=== PATIENT | male | born 1935 | race Caucasian/White ===

== ENCOUNTER 2017-01-24 07:02 | Inpatient (IN) | payer OTHER, MEDICARE ==
[~2017-01-24] VITALS: Ht 162.6 cm; Wt 61.8 kg
[~2017-01-24 07:02] MED LIST: AMLO10 PO; ATEN50TA PO; ATOR20TA15 PO; ECASA81 PO; ENAL20TA81 PO; FEXO180T PO; MOME17I EACH NARE; OMEP20TA93 PO; VITA2000 PO
[2017-01-24] MEDS ORDERED: VANCOMYCIN 1000 MG/NS 250 ML (for <70 kg) IV SCH ×2 (07:30)
[2017-01-24] MEDS ORDERED: LACTATED RINGER'S 1000 ML IV PRN (07:30)
[2017-01-24] MEDS ORDERED: INSULIN HUMAN REGULAR 1,000 UNITS/10 ML VIAL SQ PRN (07:30)
[2017-01-24] MEDS ORDERED: POVIDONE IODINE 5% (ANTISEPSIS KIT) 4 APPLICATIONS EACH NARE PRN (07:30)
[2017-01-24] MEDS ORDERED: METOPROLOL TARTRATE 25 MG TAB PO PRN (07:30)
[2017-01-24] MEDS ORDERED: SODIUM CHLORID 0.9% 500 ML IV PRN (07:30)
[2017-01-24] MEDS ORDERED: POVIDONE IODINE 7.5% SCRUB 118 ML BOTTLE TOPICAL SCH (07:30)
[2017-01-24] MEDS ORDERED: CHLORHEXIDINE GLUCONATE 2 % 1 PACK (2 CLOTHS) TOPICAL PRN (07:30)
[2017-01-24] MEDS ORDERED: BUPIVACAINE/EPINEPHRINE 0.25% PF 30 ML VIAL ONE (10:12)
[2017-01-24] MEDS ORDERED: GENTAMICIN SULFATE 80 MG/2 ML VIAL ONE (10:12)
[2017-01-24] MEDS: ceFAZolin 2 GM PREMIX 50 ML IV SCH ×2 (12:04→12:55)
[2017-01-24] MEDS ORDERED: LACTATED RINGER'S 1000 ML INJ 1,000 ML IV SCH (13:43)
[2017-01-24] MEDS ORDERED: ACETAMINOPHEN/HYDROcodone 325 MG/7.5 MG TAB PO PRN ×2 (13:45)
[2017-01-24] MEDS ORDERED: ONDANSETRON HCL 4 MG/2 ML VIAL IV PUSH PRN (13:45)
[2017-01-24] MEDS ORDERED: Post-op Orders (for Pharmacy) XX ONE (13:45)
[2017-01-24] MEDS ORDERED: BISACODYL 10 MG SUPP RECTAL PRN (13:45)
[2017-01-24] MEDS ORDERED: MORPHINE SULFATE 4 MG/ML INJ IV PUSH PRN (13:45)
--- NOTE | 2017-01-24 13:51 | PD.OP ---
cc: Juan Sung MD Operative Report Date of Surgery: Jan 24, 2017 Preoperative Diagnosis: Osteophyte disc complex cervical spine. Cervical spinal stenosis. Cervical radiculopathy Postoperative Diagnosis: Same Procedure: Posterior cervical fusion C4 5, C5 6, C6 7. Posterior spinal segmental instrumentation, C4 5, C5 6, C6 7. Placement of intravenous facet cages bilateral C4 5, C5 6 and C6 7 Anesthesia: Gen. Surgeon: Juan Sung Director Economic(s): ELIZABETH Gill Operation and Findings: EBL: 50 cc INDICATIONS: This patient is an 81-year-old male with significant neural compressive disease at C4 to C7 with cervical stenosis, cervical radiculopathy and anticipating anterior cervical decompression and fusion at the above levels. He now presents for staged posterior cervical fusion across the same levels NOTE: Sandy Gill PA-C was present for the entire surgical procedure as my medical staff assistant. In my medical opinion her skill and care was necessary for proper management of this patient PROCEDURE: The patient was brought the operating room and anesthetized in the supine position. The patient was positioned prone on a Toni table. The arms were placed out along the side and taping was utilized to ensure adequate visualization. AP and lateral radiographic images were used identifying the proper level and allowing excellent exposure for purpose of the cervical fusion. A timeout was done and antibiotics were given within a routine time window. A small incision was made over the left iliac crest bone graft. A series of cores of bone graft were harvested with a special percutaneous device. The bone graft was taken to the back table to be mixed with stem cell bone graft for the later part of the case Using AP and lateral radiographs, skin markings were made. On the right side and 18-gauge spinal needle was placed down to the proper level. The left side a separate incision was made and we used the [employer] system. Exposure was afforded down to the proper level. Under visualization, a chisel was placed down to the C C6 7 level. This was confirmed under radiographs to be in proper position. Exposure was satisfactory. This is placed down into the facet joint at that level. A decorticating device was utilized decorticating the bone of the facet above and below. A retractor was placed down over the access chisel allowing exposure to the joint and exposure to the articular cartilage. A drilling system was utilized removing cartilage and bone this region followed by a rasp. On the back table demineralized bone matrix was mixed with Nucel stem cells and a autogenous bone graft. A combination of both these were then paced placed into proper cages. The cages were impacted into the proper position and checked again under AP and lateral fluoroscopic images. A transfixation screw was placed into the cage having excellent fixation into the facet joint of the level above. The back side of the cage was filled with additional bone graft which was tamped into position. The retractor was removed. On the right side a separate incision was made. Using the likewise sequence of access to the same level, an incision was made allowing visualization for placement of an access chisel which was placed into the joint followed by decortication with excellent visualization. A final retractor was positioned holding this while we were able to drill and use the rasp. The joint was prepared and we created a space for the cage. The cage was filled with bone graft and impacted in proper position. A transfixation screw was fixated at that time and alignment was satisfactory. Additional bone graft placed along the posterior aspect of the cage and the facet joint and was tamped into position.. At the [] level, this was repeated in the likewise fashion. A decorticating device was utilized decorticating the bone of the facet above and below. A retractor was placed down over the access chisel allowing exposure to the joint and exposure to the articular cartilage. A drilling system was utilized removing cartilage and bone this region followed by a rasp. On the back table demineralized bone matrix was mixed with Nucel stem cells and a autogenous bone graft. A combination of both these were then paced placed into proper cages. The cages were impacted into the proper position and checked again under AP and lateral fluoroscopic images. A transfixation screw was placed into the cage having excellent fixation into the facet joint of the level above. The back side of the cage was filled with additional bone graft which was tamped into position. The retractor was removed. On the right side this was repeated in the likewise fashion. Using the likewise sequence of access to the same level. An access chisel was placed into the joint followed by decortication with excellent visualization. A final retractor was positioned holding this while we were able to drill and use the rasp. The joint was prepared and we created a space for the cage. The cage was filled with bone graft and impacted in proper position. A transfixation screw was fixated at that time and alignment was satisfactory. Additional bone graft placed along the posterior aspect of the cage and the facet joint and was tamped into position. At the C4 5 level, this was repeated in the likewise fashion. A decorticating device was utilized decorticating the bone of the facet above and below. A retractor was placed down over the access chisel allowing exposure to the joint and exposure to the articular cartilage. A drilling system was utilized removing cartilage and bone this region followed by a rasp. On the back table demineralized bone matrix was mixed with Nucel stem cells and a autogenous bone graft. A combination of both these were then paced placed into proper cages. The cages were impacted into the proper position and checked again under AP and lateral fluoroscopic images. A transfixation screw was placed into the cage having excellent fixation into the facet joint of the level above. The back side of the cage was filled with additional bone graft which was tamped into position. The retractor was removed. On the right side this was repeated in the likewise fashion. Using the likewise sequence of access to the same level. An access chisel was placed into the joint followed by decortication with excellent visualization. A final retractor was positioned holding this while we were able to drill and use the rasp. The joint was prepared and we created a space for the cage. The cage was filled with bone graft and impacted in proper position. A transfixation screw was fixated at that time and alignment was satisfactory. Additional bone graft placed along the posterior aspect of the cage and the facet joint and was tamped into position. Intraoperative x-rays in AP and lateral plane showed excellent positioning and stabilization . The wound was irrigated copiously. Hemostasis was controlled. The fascia was closed with interrupted Vicryl suture skin and subcutaneous tissue with 3-0 Vicryl suture followed by Dermabond. The sponge count needle counts and sponge counts were all correct. The patient tolerated the procedure well as taken to the recovery room in satisfactory condition. FINDINGS: Significant osteophyte disc complexes at each level. Cage position and he stop appeared be very satisfactory. No complication was appreciated. Juan Sung MD Jan 24, 2017 13:51
[2017-01-24] MEDS ORDERED: HYDR-3580 PO (13:54)
[2017-01-24] MEDS ORDERED: DO NOT ADM ANY ANTICOAGULANT DRUGS PRN (14:05)
[2017-01-24] MEDS ORDERED: MIDAZOLAM HCL 2 MG/2 ML VIAL ONE (14:10)
[2017-01-24] MEDS ORDERED: *morphine SULFATE 8 MG/ML PERIprocedure ONLY ONE (14:16)
--- NOTE | 2017-01-24 14:28 | RADRPT ---
EXAM DATE/TIME: 01/24/2017 13:33 [facility] COMPARISON: No previous studies available for comparison. INDICATIONS : C4-C7 Fusion MEDICAL HISTORY : None. SURGICAL HISTORY : None. ENCOUNTER: Initial ACUITY: 1 day PAIN SCORE: Non-responsive. LOCATION: Bilateral C-spine FINDINGS: 2 magnified C-arm spot views are centered over the cervical spine. Interfacet devices are seen involv ing C4-C5, C5-C6, and C6-C7. Alignment is relatively well-preserved. Prevertebral soft tissues are ob scured by an endotracheal tube and esophageal temperature curve. CONCLUSION: Limited images as detailed above. Rupesh Cohen Jr., MD on January 24, 2017 at 14:24 Board Certified Radiologist. This report was verified electronically.
[2017-01-24 16:00] VITALS: BP 144/78; PULSE 83; RESP 17; TEMP 95.3; O2SAT 91
[2017-01-24 20:00] VITALS: BP 147/76; PULSE 84; RESP 20; TEMP 98.6; O2SAT 96
[2017-01-24] MEDS: ENALAPRIL MALEATE 10 MG TAB PO SCH (20:28)
[2017-01-24] MEDS ORDERED: ATENOLOL 50 MG TAB PO SCH (21:00)
[2017-01-24] MEDS ORDERED: ATORVASTATIN 20 MG TAB PO SCH (21:00)
[2017-01-25] VITALS: BP 128/66; PULSE 83; RESP 22; TEMP 96; O2SAT 95
[2017-01-25 04:00] VITALS: BP 114/65; PULSE 62; RESP 20; TEMP 97.6; O2SAT 95
[2017-01-25 07:29] VITALS: O2SAT 95
[2017-01-25 08:00] VITALS: BP 142/60; PULSE 66; RESP 17; TEMP 97.5; O2SAT 94
[2017-01-25] MEDS ORDERED: DOCUSATE SODIUM 100 MG CAP PO SCH (09:00)
[2017-01-25] MEDS ORDERED: LORATADINE 10 MG TAB PO SCH (09:00)
[2017-01-25] MEDS ORDERED: PANTOPRAZOLE SOD 20 MG DELAYED RELEASE TAB PO SCH (09:00)
[2017-01-25] MEDS ORDERED: MULTIVITAMINS/MINERALS THERAPEUTIC TAB PO SCH (09:00)
[2017-01-25] MEDS: ENALAPRIL MALEATE 10 MG TAB PO SCH (09:46)
[2017-01-25 12:00] VITALS: BP 149/72; PULSE 68; RESP 17; TEMP 97.2; O2SAT 91
--- NOTE | 2017-01-25 13:14 | HHI.DCPOC ---
Discharge Care Plan Diagnosis: (1) Cervical spinal stenosis Your Health Problems Are: Incision/Drains Swelling Goals to Promote Your Health * To prevent worsening of your condition and complications * To maintain your health at the optimal level Directions to Meet Your Goals Take your medications as prescribed Follow your dietary instruction Follow activity as directed Keep your appointments as scheduled Take your immunizations and boosters as scheduled If your symptoms worsen call your PCP, if no PCP go to Urgent Care Center or Emergency Room Smoking is Dangerous to Your Health. Avoid second hand smoke Call the 24-hour hour crisis hotline for domestic abuse at Adriana Barrios Jan 25, 2017 13:14
--- NOTE | 2017-01-25 13:15 | HHI.DS ---
Discharge Summary Admission Date Jan 24, 2017 at 07:02 Discharge Date: Jan 25, 2017 Admitting Diagnosis see below Diagnosis: (1) Cervical spinal stenosis Diagnosis: Principal ICD Codes: M48.02 - Spinal stenosis, cervical region Procedures Posterior cervical fusion C4-C7, DTRAX instrumentation, bone graft Brief History This is a 81 year old male patient Hospital Course ..pod#1.. OTC tylenol. Occasional ibuprofen. Educatd to avoid large doses of NSAIDS. [place] 7.5 written though pt states he doesnt need them. Discharge Disposition: Discharge Home Discharge Instructions Diet Instructions: As Tolerated, No Restrictions, Soft Diet, High Fiber Diet Additional Diet Instructions: Soft diet x 48 hours only Activities You Can Perform: See Additionl Instruction Additional Activity Instruc.: Cervical collar full-time New Medications: Hydrocodone/Acetaminophen (Hydrocodone-Acetamin 7.5-325) 7.5 Mg-325 Mg Tablet 1 TAB PO Q4H PRN for PAIN, #50 TAB Continued Medications: Amlodipine (Norvasc) 10 Mg Tab 10 MG PO HS for Blood Pressure Management, #30 TAB [address] (Aspirin DR) 81 Mg Tabdr 81 MG PO DAILY, TAB 0 Refills Atenolol (Atenolol) 50 Mg Tab 50 MG PO HS for Blood Pressure Management, #30 TAB 0 Refills Atorvastatin (Atorvastatin) 20 Mg Tab 20 MG PO HS for Cholesterol Management, #30 TAB 0 Refills Cholecalciferol (Vitamin D3) 2,000 Unit Cap 2000 UNITS PO DAILY for Nutritional Supplement, #1 BOTTLE 0 Refills Enalapril (Vasotec) 20 Mg Tab 20 MG PO BID, #30 TAB 0 Refills Fexofenadine (Fexofenadine) 180 Mg Tab 180 MG PO DAILY for Allergy Management, #30 TAB 0 Refills Mometasone Nasal [place] (Nasonex Nasal [place]) 50 Mcg/Act Naspr 2 SPRAY EACH NARE DAILY for Allergy Management, #1 BOTTLE 0 Refills Omeprazole (Omeprazole) 20 Mg Tab 20 MG PO DAILY, #30 TAB 0 Refills Adriana Barrios Jan 25, 2017 13:15
--- NOTE | 2017-01-25 13:19 | PD.ORT.PN ---
Subjective Subjective Remarks Doing well. He denies any new arm pain. Mild throat soreness but no difficulty swallowing. His pain is well controlled and he has yet to take any narcotics. He is ready for discharge home. He denies any CP, abd pain or SOB. Objective Vitals Vital Signs Date Time Temp Pulse Resp B/P (MAP) Pulse Ox O2 Delivery O2 Flow Rate FiO2 01/25/17 12:00 97.2 68 17 149/72 (97) 91 01/25/17 08:00 97.5 66 17 142/60 (87) 94 01/25/17 07:29 95 21 01/25/17 04:00 97.6 62 20 114/65 (81) 95 01/25/17 00:00 96.0 83 22 128/66 (86) 95 01/24/17 20:00 98.6 84 20 147/76 (99) 96 01/24/17 17:21 Nasal Cannula 2.00 01/24/17 16:00 95.3 83 17 144/78 (100) 91 01/24/17 14:57 86 17 153/81 (105) 97 Nasal Cannula 2 01/24/17 14:45 91 17 173/87 (115) 94 Nasal Cannula 2 01/24/17 14:30 90 17 176/92 (120) 95 Nasal Cannula 2 01/24/17 14:15 85 17 163/96 (118) 90 Nasal Cannula 2 01/24/17 14:04 98.0 83 17 172/86 (114) 97 Nasal Cannula 2 I/O 01/24/17 01/24/17 01/24/17 01/25/17 01/25/17 01/25/17 07:00 15:00 23:00 07:00 15:00 23:00 Intake Total 1800 ml 100 ml 820 ml Output Total 25 ml 800 ml Balance 1775 ml 100 ml 20 ml Intake Oral 720 ml IV Total 100 ml 100 ml Other 1800 ml Output Urine Total 800 ml Estimated Blood Loss 25 ml # Voids 2 # Bowel Movements 1 Procedures Posterior cervical fusion C4-C7, DTRAX instrumentation, bone graft Objective Remarks Sitting up in chair NAD VSS C/S Posterior dressings c/d/i, mild spasms traps, no erythema, no drainage, +motor biceps, brachiorad bilaterally, +sens +nvi bilaterally, good automatic maintainer both hands Assessment & Plan Ortho Post Op Day #: 1 Problem List: (1) Cervical spinal stenosis ICD Codes: M48.02 - Spinal stenosis, cervical region Assessment and Plan pod#1 s/p Posterior cervical fusion C4-7 Ortho stable. Ok to d/c home today. Dry dressing changes daily beginning tomorrow if drainage. Cervical collar turkish rubber but ok to remove for hygiene. Soft diet for 24-38 hours only as he has sore throat. [place] 7.5mg written. He states he normally take ibuprofen but I educated him against NSAIDs as they can increase risk for nonunion. F/U in 2 weeks as scheduled. No C needed. Adriana Barrios Jan 25, 2017 13:19
== END 2017-01-25 17:27 | disposition home or self-care (01) | DRG 473 ==
LOC: HSDI 07:02 → N06A 15:07
PROVIDERS: ADMIT Orthopaedic Surgery Orthopaedic Surgery of the Spine; ATTEND Orthopaedic Surgery Orthopaedic Surgery of the Spine
PROC: 0QB30ZZ Excision of Left Pelvic Bone, Open Approach (ICD-10-PCS; 2017-01-24)
PROC: 0RG20AJ Fusion of 2 or more Cervical Vertebral Joints with Interbody Fusion Device, Posterior Approach, Anterior Column, Open Approach (ICD-10-PCS; principal; 2017-01-24 10:00)
DX: M50.121 Cervical disc disorder at C4-C5 level with radiculopathy (principal); G62.9 Polyneuropathy, unspecified; J44.9 Chronic obstructive pulmonary disease, unspecified; I10 Essential (primary) hypertension; M48.02 Spinal stenosis, cervical region; J02.9 Acute pharyngitis, unspecified; M25.78 Osteophyte, vertebrae; E78.5 Hyperlipidemia, unspecified; K21.9 Gastro-esophageal reflux disease without esophagitis; N40.0 Benign prostatic hyperplasia without lower urinary tract symptoms; Z87.891 Personal history of nicotine dependence
CPT/HCPCS: 72040; 76000; 86850; 86900; 86901; 94150; J0690; J1580; J2250; J2270; J3010; J3370; J7050; J7120

== ENCOUNTER 2017-02-16 05:11 | Observation (INO) | payer MEDICARE, OTHER ==
[~2017-02-16] VITALS: Ht 162.6 cm; Wt 66.3 kg
[~2017-02-16 05:11] MED LIST changes: +HYDR-3580 PO
[2017-02-16] MEDS ORDERED: POVIDONE IODINE 5% (ANTISEPSIS KIT) 4 APPLICATIONS EACH NARE PRN (06:00)
[2017-02-16] MEDS ORDERED: INSULIN HUMAN REGULAR 1,000 UNITS/10 ML VIAL SQ PRN (06:00)
[2017-02-16] MEDS ORDERED: METOPROLOL TARTRATE 25 MG TAB PO PRN (06:00)
[2017-02-16] MEDS ORDERED: VANCOMYCIN 1000 MG/NS 250 ML (for <70 kg) IV SCH ×2 (06:00)
[2017-02-16] MEDS ORDERED: SODIUM CHLORID 0.9% 500 ML IV PRN (06:00)
[2017-02-16] MEDS ORDERED: LACTATED RINGER'S 1000 ML IV PRN (06:00)
[2017-02-16] MEDS ORDERED: CHLORHEXIDINE GLUCONATE 4% SOLN 120 ML BTL TOPICAL SCH (06:00)
[2017-02-16] MEDS ORDERED: CHLORHEXIDINE GLUCONATE 2 % 1 PACK (2 CLOTHS) TOPICAL PRN (06:00)
[2017-02-16] MEDS ORDERED: GENTAMICIN SULFATE 80 MG/2 ML VIAL ONE ×2 (07:06→08:51)
[2017-02-16] MEDS ORDERED: BUPIVACAINE/EPINEPHRINE 0.25% PF 30 ML VIAL ONE ×2 (07:06→08:52)
[2017-02-16] MEDS ORDERED: SAWCAP2 PO (07:30)
[2017-02-16] MEDS ORDERED: GELATIN 12 MM/7 MM FOAM ONE (07:47)
[2017-02-16] MEDS: ceFAZolin 2 GM PREMIX 50 ML IV SCH ×2 (07:53→10:34)
[2017-02-16] MEDS ORDERED: ACETAMINOPHEN 1000 MG/100 ML 100 ML IV ONE (08:41)
[2017-02-16] MEDS ORDERED: PROPOFOL 500 MG/50 ML INJ 100 ML ONE ×2 (08:42→12:41)
[2017-02-16] MEDS ORDERED: MIDAZOLAM HCL 2 MG/2 ML VIAL ONE (08:42)
[2017-02-16] MEDS ORDERED: FAMOTIDINE 20 MG/2 ML VIAL ONE (09:50)
[2017-02-16] MEDS ORDERED: HYDR-3288 PO (13:38)
[2017-02-16] MEDS ORDERED: Post-op Orders (for Pharmacy) XX ONE (13:45)
[2017-02-16] MEDS ORDERED: MORPHINE SULFATE 4 MG/ML INJ IV PUSH PRN (13:45)
[2017-02-16] MEDS ORDERED: ACETAMINOPHEN/HYDROcodone 325 MG/7.5 MG TAB PO PRN ×2 (13:45)
[2017-02-16] MEDS ORDERED: BISACODYL 10 MG SUPP RECTAL PRN (13:45)
[2017-02-16] MEDS ORDERED: ONDANSETRON HCL 4 MG/2 ML VIAL IV PUSH PRN (13:45)
[2017-02-16] MEDS ORDERED: ceFAZolin INJ 1,000 MG VIAL IV ONE (14:27)
--- NOTE | 2017-02-16 15:07 | PD.OP ---
cc: Kyle Sung MD; Juan Sung MD Operative Report Date of Surgery: Feb 16, 2017 Preoperative Diagnosis: Osteophyte disc complex C4 5, C5 6, C6 7. Cervical spinal stenosis C4 to C7. Herniated nucleus pulposus C4 5 and C5 6. Bilateral cervical radiculopathy Postoperative Diagnosis: Same Procedure: Anterocervical discectomy decompression and bilateral foraminotomies, C45. Anterocervical discectomy decompression and bilateral foraminotomy, C5 6. Anterocervical discectomy decompression and bilateral foraminotomies, C6 7. Right anterior iliac crest bone graft Anesthesia: Gen. Surgeon: Juan Sung Product Support Rep(s): ELIZABETH Gill Operation and Findings: EBL: 150 cc INDICATIONS: This patient is an 81-year-old male with significant spinal stenosis in the mid to low cervical spine and evidence progressive weakness in both arms. He developed a gait disturbance. He has had a posterior cervical fusion from C4 to C7 anticipating delayed ACDF at those levels. Despite conservative care he is painful and symptomatically. He presents for surgical treatment anteriorly. NOTE: Sandy Gill PA-C was present for the entire surgical procedure as my blood bank assistant. In my medical opinion her skill and care was necessary for proper management of this patient PROCEDURE: The patient was brought to the operating room and anesthetized in the supine position. This patient was positioned supine on the radiolucent table. All pressure points were protected in the anterior cervical spine and iliac crest was scrubbed with alcohol followed by Hibiclens followed by ChloraPrep. A timeout was done and antibiotics were given within 1 hour time window. Lateral radiographic images were used identifying the proper level. A right anterior incision was made in line with skin creases. The platysma was opened in line with the incision. Deep dissection continued in the interval between the carotid sheath and the esophagus. The longus-coli muscles were lifted on both sides and retractors were positioned allowing good exposure. Lateral radiographic images were used to identify the proper level. [place] style interosseous pins were placed at C4 and C5 allowing exposure to that level. The microscope was rolled into the field. A total discectomy was accomplished and posterior osteophytes were removed. The posterior longitudinal ligament and annulus was taken down. Bilateral foraminotomies were accomplished. The endplates were squared up anticipating later bone grafting. A blunt probe could be placed out each foramen without evidence of nerve root compromise. The C4 pin was placed down to C6. An anterior exposure was accomplished. We performed a total discectomy with excision of the posterior annulus and posterior longitudinal ligament. Bilateral foraminotomies were accomplished. Osteophytes were removed. The endplates were squared up anticipating later bone grafting. A blunt probe could be placed out each foramen without evidence of nerve root compromise. The C5 pin was placed down to C7. An anterior exposure was accomplished. We performed a total discectomy with excision of the posterior annulus and posterior longitudinal ligament. Bilateral foraminotomies were accomplished. Osteophytes were removed. The endplates were squared up anticipating later bone grafting. A blunt probe could be placed out each foramen without evidence of nerve root compromise. The left iliac crest was approached. A small stab incision was made allowing percutaneous access to the anterior iliac crest. Multiple cores of cancellous bone were harvested and taken to the back table to be used for later bone grafting. The wound was irrigated anesthetized and closed with 4-0 Vicryl followed by Dermabond. The case was turned over to Dr. Kyle Sung for fusion and instrumentation per his dictation. FINDINGS: There was evidence of a central extruded disc herniation C4 5 and C5 6. There was significant central stenosis at all 3 levels. At the end of the decompression, the foraminal decompression. Very satisfactory at all levels. There was no complication that was appreciated. NOTE: This surgery was performed in 2 parts. The first part was the neurosurgical decompression performed under the variable power stereo microscope by the undersigned in addition to the bone graft. The second portion of the surgery will be performed by the orthopedic spine component by co -surgeon, Dr. Kyle Sung for the anterior fusion with interbody cage and anterior plate. The skill of 2 surgeons was necessary to perform distinct separate procedural services as dictated above and dictated in the following operative note by Dr. Kyle Sung. Juan Sung MD Feb 16, 2017 15:07
--- NOTE | 2017-02-16 15:39 | RADRPT ---
EXAM DATE/TIME: 02/16/2017 11:46 [facility] COMPARISON: [facility] (AP[facility]LAT), January 24, 2017, 13:33. INDICATIONS : C4-C7 anterior cervical fusion. MEDICAL HISTORY : Unobtainable. SURGICAL HISTORY : Unobtainable. ENCOUNTER: Initial ACUITY: 1 day PAIN SCORE: Non-responsive. LOCATION: Cerival spine. FINDINGS: AP and lateral views of the cervical spine were obtained and demonstrate the patient is status post i ntracervical fusion at the C4-C7 level with intact anterior screw-plate fixation device. Progressing material and markers are noted in the interspaces. Patient status post a remote fusion posteriorly at the C4-5, C5-6 and C6-7 levels. The alignment appears anatomic. An endotracheal tube and temperature probe are in place. CONCLUSION: Status post interval anterior fusion. Reed Graham MD on February 16, 2017 at 15:34 Board Certified Radiologist. This report was verified electronically.
[2017-02-16] MEDS ORDERED: *ONDANSETRON 4 MG VIAL PERIprocedural Use ONLY ONE (15:42)
[2017-02-16] MEDS: LACTATED RINGER'S 1000 ML INJ 1,000 ML IV SCH ×2 (15:51→23:24)
[2017-02-16 16:00] VITALS: BP 132/70; PULSE 73; RESP 15; TEMP 97.9; O2SAT 98
[2017-02-16 20:00] VITALS: BP 142/84; PULSE 66; RESP 18; TEMP 96.9; O2SAT 96
[2017-02-16] MEDS: ENALAPRIL MALEATE 10 MG TAB PO SCH (20:21)
[2017-02-16 20:49] VITALS: O2SAT 98
[2017-02-16] MEDS ORDERED: ATORVASTATIN 20 MG TAB PO SCH (21:00)
[2017-02-16] MEDS ORDERED: ATENOLOL 50 MG TAB PO SCH (21:00)
[2017-02-17 00:10] VITALS: BP 120/69; PULSE 63; RESP 18; TEMP 96.5; O2SAT 95
[2017-02-17 04:10] VITALS: BP 139/72; PULSE 65; RESP 18; TEMP 96.8; O2SAT 93
[2017-02-17 07:36] VITALS: BP 128/60; PULSE 69; RESP 18; TEMP 95.3; O2SAT 95
--- NOTE | 2017-02-17 08:06 | HHI.DCPOC ---
Discharge Care Plan Diagnosis: (1) Cervical spinal stenosis Your Health Problems Are: Incision/Drains Swelling Goals to Promote Your Health * To prevent worsening of your condition and complications * To maintain your health at the optimal level Directions to Meet Your Goals Take your medications as prescribed Follow your dietary instruction Follow activity as directed Keep your appointments as scheduled Take your immunizations and boosters as scheduled If your symptoms worsen call your PCP, if no PCP go to Urgent Care Center or Emergency Room Smoking is Dangerous to Your Health. Avoid second hand smoke Call the 24-hour hour crisis hotline for domestic abuse at Adriana Barrios Feb 17, 2017 08:05
--- NOTE | 2017-02-17 08:07 | HHI.DS ---
Discharge Summary Admission Date Feb 16, 2017 at 13:36 Discharge Date: Feb 17, 2017 Admitting Diagnosis see below Diagnosis: (1) Cervical spinal stenosis Diagnosis: Principal ICD Codes: M48.02 - Spinal stenosis, cervical region Procedures ACDF C4-C7, bone graft Brief History This is a 81 year old male patient with a 2 year history and neck and arm pain including numbness and tingling. Previous studies were pursued in 2016 which led to treatment with medications and eventually epidural injections in 2017. He eventually pursued posterior cervical fusion with DTRAX instrumentation. He now presents for staged anterior cervical decompression and fusion. Hospital Course Surgical treatment was performed on the day of admission without complication. He recovered well in PACU and was transferred to the orthopaedic floor. Pain was controlled with IV and oral medications. He was compliant with his cervical brace. He had very little throat soreness and denied difficulty swallowing. After 1 day he was found to be medically stable and discharged home. He was given a prescription of [place]. He was encouraged to pursue a soft diet for 48 hours and to continue his cervical brace time clock repairer for 5-6 weeks. Pt Condition on Discharge: Stable Discharge Disposition: Discharge Home Discharge Instructions Diet Instructions: As Tolerated, No Restrictions, Soft Diet Additional Diet Instructions: Soft diet for 48 hours Activities You Can Perform: See Additionl Instruction Additional Activity Instruc.: Brace time clock repairer New Medications: Hydrocodone-Acetaminophen ([place]) 7.5-325 mg Tab 1 TAB PO Q4H PRN for PAIN, #50 TAB 0 Refills Continued Medications: Amlodipine (Norvasc) 10 Mg Tab 10 MG PO HS for Blood Pressure Management, #30 TAB [address] (Aspirin DR) 81 Mg Tabdr 81 MG PO DAILY, TAB 0 Refills Atenolol (Atenolol) 50 Mg Tab 50 MG PO HS for Blood Pressure Management, #30 TAB 0 Refills Atorvastatin (Atorvastatin) 20 Mg Tab 20 MG PO HS for Cholesterol Management, #30 TAB 0 Refills Cholecalciferol (Vitamin D3) 2,000 Unit Cap 2000 UNITS PO DAILY for Nutritional Supplement, #1 BOTTLE 0 Refills Enalapril (Vasotec) 20 Mg Tab 20 MG PO BID, #30 TAB 0 Refills Fexofenadine (Fexofenadine) 180 Mg Tab 180 MG PO DAILY for Allergy Management, #30 TAB 0 Refills Mometasone Nasal [place] (Nasonex Nasal [place]) 50 Mcg/Act Naspr 2 SPRAY EACH NARE DAILY for Allergy Management, #1 BOTTLE 0 Refills Omeprazole (Omeprazole) 20 Mg Tab 20 MG PO DAILY, #30 TAB 0 Refills Saw [place]-Zinc (Saw [place] Extract) 160-15 mg Cap 1 CAP PO DAILY, CAP 0 Refills Adriana Barrios Feb 17, 2017 08:07
--- NOTE | 2017-02-17 08:13 | PD.ORT.PN ---
Subjective Subjective Remarks Sitting up in bed. Doing well. He continues to have posterior neck pain from his previous surgery but notes 'no problems' from yesterday's procedure. He denies any new radiating arm pain. Ready for d/c home. Objective Vitals Vital Signs Date Time Temp Pulse Resp B/P (MAP) Pulse Ox O2 Delivery O2 Flow Rate FiO2 02/17/17 07:36 95.3 69 18 128/60 (82) 95 02/17/17 04:10 96.8 65 18 139/72 (94) 93 02/17/17 00:10 96.5 63 18 120/69 (86) 95 02/16/17 20:49 98 Nasal Cannula 2.00 02/16/17 20:00 96.9 66 18 142/84 (103) 96 02/16/17 16:00 97.6 75 15 137/73 (94) 98 Nasal Cannula 2 02/16/17 16:00 97.9 73 15 132/70 (90) 98 02/16/17 15:45 72 13 136/69 (91) 99 Nasal Cannula 2 02/16/17 15:30 73 14 135/66 (89) 96 Nasal Cannula 2 02/16/17 15:15 71 15 138/68 (91) 96 Nasal Cannula 4 02/16/17 15:08 97.4 72 18 153/72 (99) 97 Nasal Cannula 4 I/O 02/16/17 02/16/17 02/16/17 02/17/17 02/17/17 02/17/17 07:00 15:00 23:00 07:00 15:00 23:00 Intake Total 2800 ml 260 ml 1148 ml Output Total 850 ml 455 ml 500 ml Balance 1950 ml -195 ml 648 ml Intake Oral 240 ml 360 ml IV Total 20 ml 788 ml Other 2800 ml Output Urine Total 350 ml 425 ml 500 ml Drainage Total 30 ml Estimated Blood Loss 500 ml # Voids 1 # Bowel Movements 0 0 Procedures ACDF C4-C7, bone graft Objective Remarks Sitting up in chair No acute distress VSS C/S Dressing c/d/i, no new drainage, no erythema +motor biceps/brachiorad, +sens (some tingling in hands still), +nvi Setter Induction Heating Equipment strength intact Assessment & Plan Ortho Post Op Day #: 1 Problem List: (1) Cervical spinal stenosis ICD Codes: M48.02 - Spinal stenosis, cervical region Assessment and Plan pod#1 s/p ACDF C4-C7, bone graft Ortho stable. Mild soreness throat but overall feels good. Swallowing without difficulty. Dry dressing changes daily. Ok to shower at 72 hours after sx. Cervical brace [facility] [employer] [facility]. F/U in 2 weeks as scheduled. No F2F written. Adriana Barrios Feb 17, 2017 08:13
[2017-02-17] MEDS: ENALAPRIL MALEATE 10 MG TAB PO SCH (08:51)
[2017-02-17] MEDS ORDERED: PANTOPRAZOLE SOD 20 MG DELAYED RELEASE TAB PO SCH (09:00)
[2017-02-17] MEDS ORDERED: LORATADINE 10 MG TAB PO SCH (09:00)
[2017-02-17] MEDS ORDERED: DOCUSATE SODIUM 100 MG CAP PO SCH (09:00)
[2017-02-17] MEDS ORDERED: MULTIVITAMINS/MINERALS THERAPEUTIC TAB PO SCH (09:00)
[2017-02-17] MEDS ORDERED: FLUTICASONE PROPIONATE 50 MCG/ACT 16 GM NASAL SPRAY EACH NARE SCH (09:00)
--- NOTE | 2017-02-17 11:12 | MP ---
cc: ANGELA VALENTIN MD, ALBERT W. M.D. DATE OF SURGERY 02/16/2017 PREOPERATIVE DIAGNOSIS 1. C4-5, C5-6, C6-7 osteophyte disc complex, spinal stenosis, spinal cord compression 2. Cervical spine degenerative disc disease osteoarthritis. 3. Bilateral cervical radiculitis with upper extremity weakness. POSTOPERATIVE DIAGNOSIS 1. C4-5, C5-6, C6-7 osteophyte disc complex, spinal stenosis, spinal cord compression 2. Cervical spine degenerative disc disease osteoarthritis. 3. Bilateral cervical radiculitis with upper extremity weakness. PROCEDURE 1. C4-5, C5-6, C6-7 interbody fusion. 2. C4-5, C5-6, Spine[employer] ACC anterior cervical cages. 3. C5-C7 spine SpineNet [place] anterior spinal instrumentation. SURGEON Matteo Sung M.D. CAFE AIDE Ellie Blanc PA-C. ANESTHESIA General. ESTIMATED BLOOD LOSS 500 cc. DRAINS One. COMPLICATIONS None. PLAN OF ACTIVITY Per orders. DETAILS OF PROCEDURE The patient was brought into the operating room, had satisfactory anesthesia by the Department of Anesthesia. Dr. Juan Sung and myself were co-surgeons. Dr. Juan Sung performed the neurosurgical decompressive portion of the procedure and I performed the orthopedic spinal fusion and stabilization portion of the procedure. For my portion of the procedure my assistant professor of drama Ellie Blanc PA-C was present for the entire surgical case. She was medically necessary for the entire case because of the complexity of the case and to facilitate the performance of the procedure. The CUSTOMER SOLUTIONS SUPERVISOR at the back table did not have the skill set for this case to manipulate the instruments, e.g., the multiple different soft tissue retractors, trial implants and permanent implants. The endplates at C6-7 were prepared for fusion. The hyaline cartilage endplate was removed using angled curets and burs. An 8, 10 x 12 ACC cage was placed in the interspace in a satisfactory manner. Anterior iliac crest bone grafting was used under fluoroscopic guidance for interbody fusion. The endplates at C5-6 were prepared for fusion. The hyaline cartilage endplate was removed using angled curets and burs. A 7, 10 x 12 ACC cage was placed in the interspace in a satisfactory manner. Anterior iliac crest bone graft was used under fluoroscopic guidance for interbody fusion. The endplate of C4-5 was prepared for fusion. The hyaline cartilage endplate was removed using angled curets and burs. A 6, 10 x 12 ACC cage was placed in the interspace. Under fluoroscopic guidance anterior iliac crest bone graft was used for interbody fusion. Anterior osteophytes were removed off the anterior aspect of the cervical spine using rongeurs and burs. A 60 mm plate was contoured for appropriate cervical lordosis. A temporary screw was used to keep the plate in appropriate position. Under fluoroscopic guidance the plate was positioned in a satisfactory manner in both AP and lateral planes. Two screws were used in the vertebral body of C4, C5, C6 and C7. Each of the screws were drilled. Each screw was 14 mm in length, 4.0 mm in outer diameter, fixed angle screws. Each of the screws were drilled and the screws were inserted. This was all done under fluoroscopic guidance. The temporary screw was removed and then the last 4.0 mm, 14 mm length screw was inserted. Intraoperative fluoroscopy in the AP and lateral plane confirmed satisfactory position of bone graft at C4-5, C5-6 and C6-7, satisfactory position of the ACC cages at C4-5, C5-6 and C6-7, and satisfactory position of the anterior spinal instrumentation from C4-C7. The wound was irrigated with copious amounts of sterile saline antibiotic solution. Surgiflo was used to provide hemostasis which was predominately coming from the neural foramen. This provided satisfactory hemostasis. I did drain the wound with a 10 [place] drain. The wound was closed in multiple layers using 3-0 Vicryl suture. Skin was approximated with running subcuticular 4-0 Vicryl. Dermabond was placed over the skin incision. The patient was placed in a [place] cervical orthosis. The patient tolerated the procedure well and arrived in the recovery room in stable and satisfactory condition. MD ERIN Story/KENNY /2:31 PM /10:46 AM
== END 2017-02-17 13:22 | disposition home or self-care (01) ==
LOC: HSDC 05:11 → HSDI 13:36 → INTOOBSV 13:36 → N06B 16:48
PROVIDERS: ADMIT Orthopaedic Surgery Orthopaedic Surgery of the Spine; ATTEND Orthopaedic Surgery Orthopaedic Surgery of the Spine
DX: M50.122 Cervical disc disorder at C5-C6 level with radiculopathy (principal); M48.02 Spinal stenosis, cervical region; M25.78 Osteophyte, vertebrae; G95.20 Unspecified cord compression; I10 Essential (primary) hypertension; J44.9 Chronic obstructive pulmonary disease, unspecified
CPT/HCPCS: 00600; 20936; 22551; 22552; 22845; 22853; 72040; 76000; 96365; 96376; C1713; G0378; J0131; J0690; J1580; J2250; J2405; J3010; J3370; J7050; J7120